=== PATIENT | female | born 1960 | race Caucasian/White ===

== ENCOUNTER 2019-06-07 06:15 | Inpatient (IN) | payer OTHER ==
[~2019-06-07] VITALS: Ht 162.6 cm; Wt 80.7 kg
--- NOTE | ~2019-06-07 | H ---
[facility] [place] [address] HISTORY AND PHYSICAL Name: JERROD REYES Room #: REG SELMA Raphael.#: [id number] Admission: 06/07/19 Attend Phys: Juan Manuel Rodriguez MD, Discharge: Date of : 62 Report #: [id number] THIS REPORT FOR: //name// CC: Juan Manuel Mccormick DO DATE OF SERVICE: 06/07/2019 HISTORY OF PRESENT ILLNESS: The patient is a 59-year-old female patient of Dr. Mccormick, Dr. Wisdom from [place], [place]. She has been having accelerating anginal symptoms with no prior documented coronary artery disease in the last month or so. Underwent nuclear stress testing, which showed a significant large area of inferior wall ischemia. She is admitted today for cardiac catheterization and further delineation of her anatomy. She was recently added statins for markedly elevated total cholesterol was approaching 300. Her other medications are baby aspirin, levothyroxine, metoprolol 50. No PND, orthopnea or peripheral edema. No syncope or presyncope, but a definite decrease in exercise tolerance. PAST MEDICAL HISTORY: Positive for some borderline hypertension, hypercholesterolemia, fibromyalgia, hypothyroidism, internal hemorrhoids, some recent prediabetes. We will need further evaluation and some spinal stenosis with back pain. There is prior thyroidectomy, cholecystectomy and hysterectomy. She had neural stimulator of the spinal cord. FAMILY HISTORY: I have taken care of her father for a number of years, who had premature coronary disease. Mother also she states. SOCIAL HISTORY: She is with 5 children and 5 grandchildren. She was a very remote minimal smoker. No significant alcohol. REVIEW OF SYSTEMS: Essentially negative except for stated above. PHYSICAL EXAMINATION: GENERAL: She is pleasant, alert. VITAL SIGNS: Blood pressure 116/60, pulse 70 and regular. HEENT: Eyes reveal xanthelasmas. Pharynx is clear. NECK: Shows preserved upstrokes without JVD or bruits. LUNGS: Clear. CARDIOVASCULAR: Regular rate and rhythm, S1, S2. No significant murmur or gallop. ABDOMEN: Soft. No HSM or abdominal bruit. EXTREMITIES: Reveal diminished pulses, 1+ femoral pulses. Distal pulses slightly also diminished. NEUROLOGIC: Nonfocal. [facility] [address] [place] [address] HISTORY AND PHYSICAL Name: JERROD REYES Room #: [facility].#: [id number] Admission: 06/07/19 Attend Phys: Juan Manuel Rodriguez MD, Discharge: Date of : 62 Report #: [id number] SKIN: Warm and dry without xanthoma or ulcer. MUSCULOSKELETAL: No gross joint deformity. ASSESSMENT: 1. Suspected coronary artery disease with accelerating anginal pattern. 2. Hypercholesterolemia. 3. Hypertension. 4. Strong family history of premature coronary artery disease. 5. Fibromyalgia. 6. Chronic back pain with spinal cord neurostimulator. RECOMMENDATIONS AND PLAN: We will proceed to the catheterization lab to delineate the anatomy and intervention if indicated. Risks, benefits, alternatives have been discussed. Thank you for assist in the care of this patient. By: [id number] /nt
[2019-06-07 06:52] VITALS: BP 151/82
[2019-06-07 07:08] LABS: HEMATOCRIT 40.7 % (37.0-47.0); HEMOGLOBIN 13.3 gm/dL (12.0-15.0); MCH 27.4 pg (26.0-34.0); MCHC 32.7 g/dL (28.0-37.0); MCV 83.9 fL (80.0-100.0); RBC 4.85 mil/uL (4.20-5.00); RDW 13.9 % (10.5-14.5); WBC 12.1 thou/uL (4.0-11.0)
[2019-06-07 07:19] LABS: CALCIUM 9.1 mg/dL (8.5-10.1); CREATININE 1.2 mg/dL (0.6-1.0)
[2019-06-07] MEDS ORDERED: ASA81BEC PO (07:30)
[2019-06-07] MEDS ORDERED: LEVO-T75 MCG PO (07:30)
[2019-06-07] MEDS ORDERED: METOPROLOL SUCC25 M1 PO (07:31)
[2019-06-07] MEDS ORDERED: CRESTOR40 MG PO (07:33)
[2019-06-07] MEDS ORDERED: NITROSTAT0.4 M1 SL (07:33)
--- NOTE | 2019-06-07 07:52 | EKG ---
[address] [address] ELECTROCARDIOGRAM REPORT Name: JERROD REYES Room #: REG [facility] Gurwinder#: [id number] Admission: 06/07/19 Attend Phys: Juan Manuel Rodriguez MD, Discharge: Date of : 62 Report #: [id number] THIS REPORT FOR: //name// [facility] Test Date: 2019-06-07 Test Time: 07:29:20 Pat Name: JERROD REYES Department: Room: Gender: F Sports Medicine Physician: Eula SPRAGUE : 1960 Requested By: Juan Manuel Rodriguez Order Number: [id number] MD: Siemon Walters Measurements Intervals [place] Rate: 65 P: 12 WI: 122 QRS: 6 QRSD: 89 T: -30 QT: 425 QTc: 442 Interpretive Statements Sinus rhythm Borderline repolarization abnormality No previous ECG available for comparison Electronically Signed On 06-07-2019 7:51:57 CDT by Simeon Walters [email or web address] <ELECTRONICALLY SIGNED> By: Simeon Walters MD 06/07/19 0751 0729 0729 Simeon Walters MD /CHANDLER
--- NOTE | 2019-06-07 12:11 | NUR ---
REPORT TO DANN GRACE.
[2019-06-07 12:50] LABS: CHOLESTEROL 163 mg/dL (<200); HDL CHOLESTEROL 44 mg/dL (>40); LDL CHOLESTEROL 100 mg/dL (<100); TC:HDL 3.7 Ratio (Not establshd); TRIGLYCERIDE 95 mg/dL (<150); VLDL 19 mg/dL (<40)
[2019-06-07 13:30] VITALS: BP 135/75
--- NOTE | 2019-06-07 15:37 | 2DMMODE ---
[facility] [place] [address] 2 D/M-MODE ECHOCARDIOGRAM Name: JERROD REYES Room #: 213-P [facility].#: [id number] Admission: 06/07/19 Attend Phys: Juan Manuel Rodriguez, Discharge: Date of : 62 Report #: [id number] THIS REPORT FOR: //name// APPROVED REPORT Study performed: 06/07/2019 12:33:40 EXAM: Comprehensive 2D, Doppler, and color-flow Echocardiogram Patient Location: Bedside Status: routine BSA: 1.85 HR: 71 bpm BP: 151/82 mmHg Rhythm: NSR Other Information Study Quality: Adequate Indications Pre Op CABG, CAD, HTN, HLD. 2D Dimensions RVDd: 39.81 mm IVSd: 9.64 (7-11mm) LVOT Diam: 18.56 (18-24mm) LVDd: 49.53 mm PWd: 9.33 (7-11mm) Ascending Ao: 31.95 (22-36mm) LVDs: 31.34 (25-40mm) Aortic Root: 29.00 mm IVC: 18.00 mm Volumes Left Atrial Volume (Systole) Single Plane 4CH: 39.15 mL Single Plane 2CH: 36.24 mL LA ESV Index: 24.00 mL/m2 Aortic Valve AoV Peak Ralph.: 1.84 m/s AO Peak Gr.: 13.53 mmHg LVOT Max P.54 mmHg LVOT Max V: 1.06 m/s JOHN Vmax: 1.57 cm2 Mitral Valve E/A Ratio: 1.1 MV Decel. Time: 206.54 ms MV E Max Ralph.: 0.82 m/s [facility] [address] [place] [address] 2 D/M-MODE ECHOCARDIOGRAM Name: JERORD REYES Room #: [facility]#: [id number] Admission: 06/07/19 Attend Phys: Juan Manuel Rodriguez, Discharge: Date of : 62 Report #: [id number] MV A Ralph.: 0.73 m/s MV PHT: 59.90 ms IVRT: 78.43 ms Pulmonary Valve PV Peak Ralph.: 1.02 m/s PV Peak Gr.: 4.20 mmHg Pulmonary Vein P Vein S: 0.66 m/s P Vein A: 0.30 m/s P Vein D: 0.49 m/s P Vein A Dur.: 110.7 msec P Vein S/D Ratio: 1.35 Tricuspid Valve TR Peak Ralph.: 2.68 m/s RAP Estimate: 10.00 mmHg TR Peak Gr.: 28.70 mmHg PA Pressure: 38.00 mmHg Left Ventricle The left ventricle is normal size. There is normal LV segmental wall motion. There is normal left ventricular wall thickness. The left ventricular systolic function is normal. LVEF is 60%. Moderate diastolic dysfunction is present (pseudonormal filling). Right Ventricle The right ventricle is normal size. The right ventricular systolic function is normal. Atria The left atrium size is normal. The right atrium size is normal. Aortic Valve Aortic valve is mildly calcified. No aortic regurgitation is present. There is no aortic valvular stenosis. Mitral Valve The mitral valve is normal in structure. Mild to moderate mitral regurgitation. No evidence of mitral valve stenosis. Tricuspid Valve The tricuspid valve is normal in structure. Trace to mild tricuspid regurgitation. Estimated PAP is 38mmHg. Pulmonic Valve Pulmonic valve is not well visualized. Trace pulmonic regurgitation. [facility] [address] [place] [address] 2 D/M-MODE ECHOCARDIOGRAM Name: JERROD REYES Room #: 213-[facility]..#: [id number] Admission: 06/07/19 Attend Phys: Juan Manuel Rodriguez, Discharge: Date of : 62 Report #: [id number] Great Vessels The aortic root is normal in size. The ascending aorta is normal in size. IVC is normal in size and collapses <50% with inspiration. Pericardium Small pericardial effusion. <Conclusion> The left ventricle is normal size. LVEF is 60%. Moderate diastolic dysfunction is present (pseudonormal filling). The right ventricle is normal size. The left atrium size is normal. Aortic valve is mildly calcified. There is no aortic valvular stenosis. Mild to moderate mitral regurgitation. Trace to mild tricuspid regurgitation. Estimated PAP is 38mmHg. The aortic root is normal in size. Small pericardial effusion. <ELECTRONICALLY SIGNED> By: Juan Manuel Rodriguez MD, FACC 06/07/19 1537 [id number] 153 Juan Manuel Rodriguez MD, FACC /INF
[2019-06-07 16:15] VITALS: BP 129/63
[2019-06-07 17:04] LABS: ABSOLUTE NEUTROPHILS 9.9 thou/uL (1.4-8.2); BASOPHILS 0.6 % (0.0-2.0); HEMATOCRIT 39.5 % (37.0-47.0); HEMOGLOBIN 12.8 gm/dL (12.0-15.0); LYMPHOCYTES 13.6 % (24.0-44.0); MCH 27.5 pg (26.0-34.0); MCHC 32.5 g/dL (28.0-37.0); MCV 84.5 fL (80.0-100.0); MONOCYTES 3.1 % (1.0-8.0); PLATELET COUNT 322 thou/uL (150-400); POLYS 82.7 % (36.0-66.0); RBC 4.67 mil/uL (4.20-5.00); RDW 13.5 % (10.5-14.5)
[2019-06-07 17:08] LABS: URINE BILIRUBIN NEGATIVE (Negative); URINE BLOOD NEGATIVE (Negative); URINE CLARITY CLEAR; URINE COLOR YELLOW; URINE GLUCOSE-RANDOM* NEGATIVE (Negative); URINE KETONES NEGATIVE (Negative); URINE LEUKOCYTES-REFLEX NEGATIVE (Negative); URINE NITRITE-REFLEX NEGATIVE (Negative); URINE PROTEIN (DIPSTICK) NEGATIVE (Negative); URINE UROBILINOGEN 0.2 E.U./dl (0.2-1.0)
[2019-06-07 17:16] LABS: APTT 25.4 Seconds (24.5-32.8)
--- NOTE | 2019-06-07 18:12 | NUR ---
PATIENT ARRIVED FROM CATH AT 1330, SHE WAS OFF BED REST AND POST CARDIAC CATH VS WAS DONE IN PACU. ON ARRIVAL SHE WAS SR AT 76/MIN AND BP 151/82. ASSESMENT DOCUMENTED AND ADMISSIOM COMPLETED. RT [facility] SITE D/C/I. C/O BACK PAIN AND PATIENT HAS IMPLANTED TENS UNIT, VERIFIED WITH LEILA AND PATIENT TURN THE UNIT. AND WILL CONTINUE WITH POC.
[2019-06-07 21:06] VITALS: BP 120/63
[2019-06-07 23:06] LABS: GLYCOHEMOGLOBIN (HGB A1C) 5.4 % (4.8-5.6)
[2019-06-08 03:58] LABS: HEMATOCRIT 36.1 % (37.0-47.0); HEMOGLOBIN 11.9 gm/dL (12.0-15.0); MCH 27.7 pg (26.0-34.0); MCHC 33.1 g/dL (28.0-37.0); MCV 83.6 fL (80.0-100.0); RBC 4.32 mil/uL (4.20-5.00); RDW 13.8 % (10.5-14.5); WBC 10.8 thou/uL (4.0-11.0)
[2019-06-08 04:10] LABS: ALBUMIN 3.1 g/dL (3.4-5.0); CALCIUM 8.6 mg/dL (8.5-10.1); POTASSIUM 4.2 mmol/L (3.5-5.1); TOTAL BILIRUBIN 0.5 mg/dL (<0.1-1.0); TOTAL PROTEIN 7.1 g/dL (6.4-8.2)
[2019-06-08 04:53] VITALS: BP 97/65
--- NOTE | 2019-06-08 04:58 | NUR ---
ASSUMED PT CARE AT 1900. PT IS ALERT AND ORIENTED WITH NO SIGN OF DISTRESS NOTED IN PT. NO COMPLAINTS OF CHEST PAIN. PT IS UP AD PATITO. ASSESSMENT COMPLETED AND DOCUMENTED. SCHEDULED MEDS ADMINISTERED TO PT. PT IS STABLE THROUGHOUT THE NIGHT. DENIES ANY FURTHER NEEDS AT THIS TIME.
[2019-06-08 07:28] VITALS: BP 129/74
--- NOTE | 2019-06-08 08:49 | EKG ---
[address] [address] ELECTROCARDIOGRAM REPORT Name: JERROD REYES Room #: 213-P ADM IN M.R.#: [id number] Admission: 06/07/19 Attend Phys: Juan Manuel Rodriguez MD, Discharge: Date of : 62 Report #: [id number] THIS REPORT FOR: //name// [facility] Test Date: 2019-06-08 Test Time: 07:10:57 Pat Name: JERROD REYES Department: Room: 213 P Gender: F Rattan Worker: STARLA : 1960 Requested By: Juan Manuel Rodriguez Order Number: [id number] MD: Beka Maurice Measurements Intervals [place] Rate: 79 P: 17 SD: 118 QRS: 9 QRSD: 90 T: -64 QT: 419 QTc: 481 Interpretive Statements Sinus rhythm Borderline short SD interval Abnormal R-wave progression, early transition Repol abnrm suggests ischemia, anterolateral Compared to ECG 06/07/2019 07:29:20 No significant change was found Electronically Signed On 06-08-2019 8:49:24 CDT by Beka Maurice [email or web address] <ELECTRONICALLY SIGNED> By: Beka Maurice MD, [facility] 06/08/19 0849 0710 0710 Beka Maurice MD, [facility] /EPI
--- NOTE | 2019-06-08 09:19 | CATHLAB ---
[facility] [address] [place] [address] INVASIVE PROCEDURE REPORT Name: JERROD REYES Room #: 213-P ADM IN M.R.#: [id number] Admission: 06/07/19 Attend Phys: Juan Manuel Rodriguez, Discharge: Date of : 62 Report #: [id number] THIS REPORT FOR: //name// APPROVED REPORT Study performed: 06/07/2019 07:40:30 Patient Details Patient Status: Out-Patient Room #: The patient is a 59 year-old female Event Personnel Juan Manuel Rodriguez Saturator, Patrick Mooney RN, Connie Delacruz RTR Scrub, Tj Flaherty Monitor, Zina Vasquez RTR Monitor Procedures Performed Art Access - R femoral artery* Left Heart Cath w/or w/o Coronaries [id number] [facility] Aortogram Abdominal Peripheral Angio 277493 Renal Bilateral Peripheral Angiography [id number] CVRENALBIL 09772 Initial Mod Sed Same Phys/QHP Gr5y 302726 58345 Mod Sed Same Phys/QHP Ea 269925 Hemostasis w/ Mynx Indication Chest pain Procedure Narrative The Right Groin^ was infiltrated with 1% Lidocaine subcutaneous anesthesia. A PINNACLE 6FR Sheath #[id number] sheath was inserted into the RFA^. Coronary angiography was performed using coronary diagnostic catheters. The right coronary system was accessed and visualized with a JR4 catheter. The left coronary system was accessed and visualized with a JL4 catheter. The left ventricle was accessed and visualized with a pigtail catheter. Left ventriculogram was performed in 30 degree projection. An aortogram of the abdominal aorta was performed. Pre-demployment femoral angiogram was performed . Closure device was deployed with a Fr MYNXGRIP 6/7F #[id number]. Hemostasis was obtained with manual pressure following sheath removal without any complications. The patient tolerated the procedure well and there were no complications associated with the procedure. A hematoma occurred. Intraoperative Conscious Sedation Sedation start time: 8:29 Case end Time: 9:19 [facility] [address] [place] [address] INVASIVE PROCEDURE REPORT Name: JERROD REYES Room #: 213-P [facility] IN M.R.#: [id number] Admission: 06/07/19 Attend Phys: Juan Manuel Rodriguez, Discharge: Date of : 62 Report #: [id number] Fentanyl 50 mcg Versed 2 mg Fluoro Time: 3.11 minutes Dose: DAP 4412.60 cGycm2 539 mGy Contrast Type and Amount: Visipaque 125 ml Hemodynamics The aortic pressure is 128/71 mmHg with a mean of 90 mmHg. The left ventricular pressure is 129/3 mmHg with a mean of mmHg. The left ventricular end diastolic pressure is 15 mmHg. Conclusion #1 normal left ventricular size with subtle inferior basilar wall leg EF 50-55% #2 abdominal aortogram without evidence of aneurysm single bilateral renal arteries widely patent. #3 left main is large and free of disease giving rise to LAD and circumflex #4 the LAD is high-grade complex proximal stenosis of 90-95% involves the diagonal takeoff which is mild to moderate in size. A mid vessel segment also 90% long in the LAD with a preserved distal half of this vessel extends to the apex #5 circumflex OM is nondominant but moderate in size also with extremely complex stenosis 90% proximally giving rise to 2 large OM branches the second of which has a high-grade 95% lesion again well preserved distal targets in the's to OM branches. #6 dominant right coronary artery is subtotally occluded may be WALL WORKER in the mid vessel with preserved PDA and GABRIEL. Appears to be some faint competitive filling from the left system. #7 selective renal angiography bilaterally reveals mild ostial disease. #8 of the CHUNG was injected in anticipation of bypass is widely patent and large conduit Recommendations and plan: Patient with preserved LV function severe three-vessel coronary disease she will we best served with revascularization by bypass. Excellent targets distal to stenoses which are multiple. Transfer to CCU pain-free hemodynamically stable. <ELECTRONICALLY SIGNED> By: Juan Manuel Rodriguez MD, FACC 06/08/19917 7 7 Juan Manuel Rodriguez MD, FACC /INF
[2019-06-08 11:51] VITALS: BP 119/76
--- NOTE | 2019-06-08 14:55 | NUR ---
Consult [id number] is completed. This supplier quality engineer had previusly met this patient on 06/07/19. We had a very meaningful conversation about her mary and family. She said on 06/07/19 that "her motheris her Pilot Instructor" at their mandaeism at [place], [place]. Today, the patient greeted this supplier quality engineer warmly and we discussed her stay. She shared about her upcoming "open heart" surgery on Tuesday. We discussed her family and that both parents have heart issues also. Dr. Medrano has been her father's entry specialist for many years. She said Dr. Merrill asked her to tell "Boots, her father, hello for him". She feels a high level of comfort working with her father's Cardiology group. I told her about my observing the personality of Dr. Avilez, her suregon, as being incredibly gracious and humble. Patient feels at peace with God about her upcoming surgery. I teased her about since her brother "owns a gym he would probably love to "push her hard" in her rehab. She said her father still goes to the [facility], to this day, in [place] for the Rehab gym. She said she will probably just go with her dad when the time comes. We concluded in prayer.
[2019-06-08 15:27] VITALS: BP 112/71
--- NOTE | 2019-06-08 17:03 | NUR ---
met with patient who resides in [facility]. 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 She resides with spouse who is on disability due to dialysis. He dializes 3x a week. Patient also on disability she has a spinal stimulator and arthritis. She has 3 children who are supportive. patient to have a CABG Tuesday She may stay at her parents home upon dc to recover. Patient has health insurance and PCP is Dr Mccormick. caset following for dc planning.
--- NOTE | 2019-06-08 19:58 | NUR ---
RECEIVED PT'S CARE AROUND 0730; PT. ON BED; AOX4; WOOD ROUTER AT THE BED SIDE; DURING ASSESSMENT NO C/O PAIN; ST. ABLE TO AMBULATE WITHOUT ASSISTANCE; EDUCATED ABOUT FALL PREVENTIONS; AM MEDICATION GIVEN; NO C/O PAIN THROUGH THE DAY; NO HEMATOMA OVER R. GROIN AREA; SR ON MONITOR; ASSESSMENT CHARGED; FOLLOWING POC; PASSED ON REPORT;
[2019-06-08 20:32] VITALS: BP 121/76
--- NOTE | 2019-06-09 03:26 | NUR ---
ASSUMED PT CARE AT 1900. VSS. PT A&0X4, ASSESSMENTS AND MEDS GIVEN ARE DOCUMENTED. PT RESTED WELL ALL NIGHT, SHE IS SOMEWHAT ANXIOUS ABOUT SCHEDULED SURGERY. PT IS STABLE, GOOD URINE OUTPUT OVERNIGHT, NO COMPLAINTS OF PAIIN OR DISTRESS WILL CONTINUE OT MONITOR PER POC.
[2019-06-09 03:45] VITALS: BP 132/61
[2019-06-09 04:10] LABS: CREATININE 1.1 mg/dL (0.6-1.0)
[2019-06-09 08:09] VITALS: BP 139/78
[2019-06-09 11:55] VITALS: BP 133/84
[2019-06-09 16:16] VITALS: BP 116/65
--- NOTE | 2019-06-09 17:04 | NUR ---
RECEIVED PT'S CARE AROUND 709; PT. ON BED RESTING WITH EYES CLOSED; DURING ASSESSMENT PT. C/O BACK PAIN; 10/22; ST. ABLE TO TOLERATE PAIN; AM MEDICATION GIVEN; UPDATED CODE STATUS BY CELLAR PUMPER; THROUGH THE DAY NO C/O CP; VS WNL; FERMIN CRAFT ON THE MONITOR; ASSESSMENT CHARGED; FOLLOWING POC; WILL PASS ON REPORT;
[2019-06-09 20:10] VITALS: BP 121/78
[2019-06-10 04:39] VITALS: BP 99/62
--- NOTE | 2019-06-10 05:30 | NUR ---
ASSUMED PT CARE 1900. PT IS ALERT AND ORIENTED. NO SIGN OF DISTRESS NOTED IN PT. PT IS LAYING COMFORTABLY IN BED. DENIES ANY PAIN OF ANY KIND. ASSESSMENT COMPLETED AND DOCUMENTED. VITAL SIGNS STABLE. SCHEDULED MEDS ADMINISTERED TO PT. NO FURTHER NEEDS AT THIS TIME.
[2019-06-10 07:18] VITALS: BP 105/65
[2019-06-10 11:44] VITALS: BP 113/74
[2019-06-10 16:04] VITALS: BP 126/80
--- NOTE | 2019-06-10 18:30 | NUR ---
ASSUMED CARE AT SHIFT CHANGE, ALERT AND ORIENTED X4. ASSESMENT DOCUMENTED. VSS AND AFEBRILE. ANXIUOS ABOUT THE SURGERY TOMORROW. DENIES ANY CP OR DISOCMFORT AT THIS TIME AND WILL CONTINUE WITH POC.
[2019-06-10 20:15] VITALS: BP 115/84
[2019-06-11] VITALS (16 sets, daily range): BP systolic 93–129; BP diastolic 54–79
--- NOTE | 2019-06-11 05:24 | NUR ---
ASSUMED PT CARE AT 1900. PT IS ALERT AND ORIENTED. NO SIGN OF DISTRESS NOTED. FAMILY AT BEDSIDE. PT IS STABLE. ASSESSMENT COMPLETED AND DOCUMENTED. SCHEDULED MEDS ADMINISTERED TO PT. PT IS NPO AFTER MN FOR A CABG. PT TAKES CHLOROHEXIDINE BATH X2. (PM AND AM). PT IS STABLE THROUGHOUT THE NIGHT. PT DENIES ANY PAIN. PT IS PREP FOR CABG. DENIES ANY FURTHER NEEDS AT THIS TIME.
[2019-06-11 12:56] LABS: HEMATOCRIT 24.6 % (37.0-47.0); MCH 27.9 pg (26.0-34.0); MCV 84.6 fL (80.0-100.0); RBC 2.9 mil/uL (4.20-5.00); RDW 13.9 % (10.5-14.5)
[2019-06-11 12:57] LABS: HEMOGLOBIN 8.1 gm/dL (12.0-15.0)
[2019-06-11 13:00] LABS: APTT 32.5 Seconds (24.5-32.8); FIBRINOGEN 180.2 mg/dL (210-360); PROTIME 15.4 Seconds (9.3-11.4)
[2019-06-11 13:01] LABS: INR 1.5
[2019-06-11 13:32] LABS: POC BE 1 mmol/L (-2.0 to +3.0); POC CA IONIZED 3.3 mg/dL (4.5-5.3); POC GLUCOSE 171 mg/dL (70-99); POC HCO3 25.5 mmol/L (22.0-26.0); POC HEMOGLOBIN 7.8 g/dL (12.0-15.0); POC POTASSIUM 5.7 mmol/L (3.5-5.1); POC SODIUM 136 mmol/L (136-145); POC pCO2 40.6 mmHg (35.0-45.0); POC pH 7.405 (7.360-7.450)
[2019-06-11 13:32] LABS: POC BE -3 mmol/L (-2.0 to +3.0); POC CA IONIZED 3.6 mg/dL (4.5-5.3); POC GLUCOSE 107 mg/dL (70-99); POC HEMOGLOBIN 8.2 g/dL (12.0-15.0); POC POTASSIUM 4.7 mmol/L (3.5-5.1); POC SODIUM 135 mmol/L (136-145); POC pCO2 36.5 mmHg (35.0-45.0); POC pH 7.388 (7.360-7.450)
[2019-06-11 13:32] LABS: POC BE -3 mmol/L (-2.0 to +3.0); POC GLUCOSE 126 mg/dL (70-99); POC HCO3 21.8 mmol/L (22.0-26.0); POC HEMOGLOBIN 8.8 g/dL (12.0-15.0); POC POTASSIUM 4.1 mmol/L (3.5-5.1); POC SODIUM 141 mmol/L (136-145); POC pCO2 33.3 mmHg (35.0-45.0); POC pH 7.423 (7.360-7.450)
[2019-06-11 13:32] LABS: POC BE -2 mmol/L (-2.0 to +3.0); POC CA IONIZED 4.4 mg/dL (4.5-5.3); POC GLUCOSE 123 mg/dL (70-99); POC HCO3 22.5 mmol/L (22.0-26.0); POC HEMOGLOBIN 10.9 g/dL (12.0-15.0); POC SODIUM 136 mmol/L (136-145); POC pCO2 35.1 mmHg (35.0-45.0); POC pH 7.414 (7.360-7.450)
[2019-06-11 13:32] LABS: POC BE -1 mmol/L (-2.0 to +3.0); POC CA IONIZED 4.3 mg/dL (4.5-5.3); POC GLUCOSE 158 mg/dL (70-99); POC HEMOGLOBIN 8.2 g/dL (12.0-15.0); POC POTASSIUM 5.1 mmol/L (3.5-5.1); POC SODIUM 138 mmol/L (136-145); POC pCO2 37.3 mmHg (35.0-45.0); POC pH 7.417 (7.360-7.450)
[2019-06-11 13:32] LABS: POC BE 3 mmol/L (-2.0 to +3.0); POC CA IONIZED 3.4 mg/dL (4.5-5.3); POC GLUCOSE 113 mg/dL (70-99); POC HCO3 27.3 mmol/L (22.0-26.0); POC HEMOGLOBIN 6.8 g/dL (12.0-15.0); POC POTASSIUM 5.1 mmol/L (3.5-5.1); POC SODIUM 137 mmol/L (136-145)
[2019-06-11 13:32] LABS: POC BE 2 mmol/L (-2.0 to +3.0); POC CA IONIZED 3.5 mg/dL (4.5-5.3); POC GLUCOSE 171 mg/dL (70-99); POC HCO3 27.2 mmol/L (22.0-26.0); POC HEMOGLOBIN 7.8 g/dL (12.0-15.0); POC POTASSIUM 5.9 mmol/L (3.5-5.1); POC SODIUM 136 mmol/L (136-145); POC pCO2 43.5 mmHg (35.0-45.0); POC pH 7.404 (7.360-7.450)
[2019-06-11 13:32] LABS: POC BE 3 mmol/L (-2.0 to +3.0); POC CA IONIZED 3.4 mg/dL (4.5-5.3); POC GLUCOSE 140 mg/dL (70-99); POC HEMOGLOBIN 6.8 g/dL (12.0-15.0); POC POTASSIUM 5.8 mmol/L (3.5-5.1); POC SODIUM 136 mmol/L (136-145); POC pCO2 40.3 mmHg (35.0-45.0); POC pH 7.434 (7.360-7.450)
[2019-06-11 13:32] LABS: POC BE 1 mmol/L (-2.0 to +3.0); POC CA IONIZED 4.6 mg/dL (4.5-5.3); POC GLUCOSE 114 mg/dL (70-99); POC HCO3 24.1 mmol/L (22.0-26.0); POC HEMOGLOBIN 11.9 g/dL (12.0-15.0); POC POTASSIUM 4.2 mmol/L (3.5-5.1); POC SODIUM 138 mmol/L (136-145); POC pCO2 31.5 mmHg (35.0-45.0); POC pH 7.492 (7.360-7.450)
[2019-06-11 14:13] LABS: MCH 27.9 pg (26.0-34.0); MCHC 33.1 g/dL (28.0-37.0); MCV 84.5 fL (80.0-100.0); RBC 4.15 mil/uL (4.20-5.00); RDW 13.8 % (10.5-14.5); WBC 31.9 thou/uL (4.0-11.0)
[2019-06-11 14:15] LABS: HEMOGLOBIN 11.6 gm/dL (12.0-15.0)
[2019-06-11 14:22] LABS: CALCIUM 7.5 mg/dL (8.5-10.1); CREATININE 0.9 mg/dL (0.6-1.0); MAGNESIUM 2.5 mg/dL (1.8-2.4); POTASSIUM 4.1 mmol/L (3.5-5.1)
[2019-06-11 14:22] LABS: BE(vivo) -4.5 mmol/L (-2 to +3); HCO3 20.4 mmol/L (22.0-26.0); PCO2 37.2 mmHg (35.0-45.0); PO2 96.7 mmHg (80.0-100.0); pH 7.358 (7.360-7.450); sO2 97.2 % (92.0-98.0)
[2019-06-11 14:25] LABS: APTT 33.2 Seconds (24.5-32.8); INR 1.3; PROTIME 13.2 Seconds (9.3-11.4)
--- NOTE | 2019-06-11 19:17 | NUR ---
PT ARRIVED ON THE UNIT @ APPROXIMATELY 1450 WITH THE ASSIST OF NURSING STAFF, THE ANESTHESIOLOGIST, DR PAUL AND TAMMY BECKER. NO COMPLICATIONS NOTED DURING TRANPORT. FAMILY UPDATED ABOUT STATUS. UNABLE TO REACH DR PAUL THROUGH CELL-PHONE NUMBER PROVIDED ON THE UNIT AND SO TAMMY BECKER WAS CALLED AND GIVEN THE INITIAL ABG AND RN WAS TOLD THAT HE WOULD REPORT PERSONALLY TO DR PAUL. REPORT GIVEN TO BUSHRA QUIGLEY. CONTINUE TO FOLLOW ORDERS. PLAN OF CARE- CONT TO MONITOR.
[2019-06-11 19:58] LABS: BE(vivo) -5.7 mmol/L (-2 to +3); HCO3 19.5 mmol/L (22.0-26.0); PCO2 37.3 mmHg (35.0-45.0); PO2 146.2 mmHg (80.0-100.0); pH 7.336 (7.360-7.450); sO2 98.8 % (92.0-98.0)
[2019-06-11 21:44] LABS: BE(vivo) -6.4 mmol/L (-2 to +3); HCO3 18.3 mmol/L (22.0-26.0); PCO2 33.7 mmHg (35.0-45.0); PO2 115.6 mmHg (80.0-100.0); pH 7.352 (7.360-7.450); sO2 98.1 % (92.0-98.0)
[2019-06-12] VITALS (21 sets, daily range): BP systolic 99–139; BP diastolic 54–75
--- NOTE | 2019-06-12 05:57 | NUR ---
PT CONFUSED, VISUALLY HALLUCINATING, OUTBURTS CRYING EPISODES x3 AND RESTLESS. PT PERSISTENTLY TACHYCARDIC AND HYPENTENSIVE THROUGHOUT THE NIGHT. PT TREATED WITH PRN MEDS. 500 ML NS BOLUS GIVEN. LOPRESSOR 5 MG X2 GIVEN. NO CHANGE IN SITUATION. CARDIOLOGY CONSULTED. PT WAS AWAKE ALL NIGHT.
[2019-06-12 06:15] LABS: HEMATOCRIT 30.7 % (37.0-47.0); HEMOGLOBIN 10.4 gm/dL (12.0-15.0); MCH 28.3 pg (26.0-34.0); MCHC 33.8 g/dL (28.0-37.0); MCV 83.8 fL (80.0-100.0); RBC 3.67 mil/uL (4.20-5.00); RDW 14.3 % (10.5-14.5)
[2019-06-12 06:17] LABS: WBC 16.9 thou/uL (4.0-11.0)
[2019-06-12 06:32] LABS: CALCIUM 7.8 mg/dL (8.5-10.1); MAGNESIUM 2.2 mg/dL (1.8-2.4)
--- NOTE | 2019-06-12 08:13 | NUR ---
See [facility] for assessment, insulin flowsheet, and critical care flowsheet for events. pt extubated at 2024. Cont to enc pt to cough/deep breath. IS -fair effort. Hemodynamics wnl. On Amiodorone with SR -hr 90's. Good urine output. UP to chair. Progressing towards goals. Cont plan of care
--- NOTE | 2019-06-12 08:37 | EKG ---
[address] [address] [facility] [address] ELECTROCARDIOGRAM REPORT Name: JERROD REYES Room #: 236-P ADM IN M.R.#: [id number] Admission: 06/07/19 Attend Phys: Juan Manuel Rodriguez MD, Discharge: Date of : 62 Report #: [id number] THIS REPORT FOR: //name// [facility] Test Date: 2019-06-11 Test Time: 15:57:08 Pat Name: JERROD REYES Department: Room: [facility] Gender: F Customs Patrol Officer: Marry PENA : 1960 Requested By: Cornelius Cha Order Number: [id number] MD: Beka Maurice Measurements Intervals [place] Rate: 94 P: 20 CT: 137 QRS: 21 QRSD: 98 T: 269 QT: 411 QTc: 515 Interpretive Statements Sinus rhythm Nonspecific ST and T wave abnormality Prolonged QT interval Compared to ECG 06/08/2019 07:10:57 No significant change was found Electronically Signed On 06-12-2019 8:37:13 CDT by Beka Maurice [email or web address] <ELECTRONICALLY SIGNED> By: Beka Maurice MD, [facility] 06/12/19 0837 1557 1557 Beka Maurice MD, [facility] /EPI
--- NOTE | 2019-06-12 08:39 | EKG ---
[place] [place] [address] [facility] [place] [address] ELECTROCARDIOGRAM REPORT Name: JERROD REYES Room #: 236-P ADM IN M.R.#: [id number] Admission: 06/07/19 Attend Phys: Juan Manuel Rodriguez MD, Discharge: Date of : 62 Report #: [id number] THIS REPORT FOR: //name// [facility] Test Date: 2019-06-12 Test Time: 07:17:08 Pat Name: JERROD REYES Department: Room: 236 P Gender: F Patient Coordinator: STARLA : 1960 Requested By: Cornelius Cha Order Number: [id number] MD: Beka Maurice Measurements Intervals [place] Rate: 99 P: 5 [place]: 149 QRS: 5 QRSD: 81 T: 196 QT: 382 QTc: 491 Interpretive Statements Sinus rhythm RSR' in V1 or V2, right VCD Abnrm T, consider ischemia, anterolateral lds Compared to ECG 06/08/2019 07:10:57 No significant change was found Electronically Signed On 06-12-2019 8:39:07 CDT by Beka Maurice [email or web address] <ELECTRONICALLY SIGNED> By: Beka Maurice MD, FACC 06/12/19 0839 6 6 Beka Maurice MD, [facility] /EPI
--- NOTE | 2019-06-12 15:53 | NUR ---
POD #1 CABG TODAY. UP IN GEMMA. THERAPY EVALS PENDING AND CM FOLLOWING FOR COORDINATION OF ANY DC NEEDS.
--- NOTE | 2019-06-12 19:17 | NUR ---
PT POST OP DAY 1 CABG X4. UP TO CHAIR AT 0700. DR. PAUL AND MAGALY BECKER AT BEDSIDE. ORDERS TO D/C CLARKE TSANG MEDS AND TO CAP PACER WIRES. PATIENT VITALS STABLE THROUGH OUT THE DAY. REMAINS ON 2L NC. UP TO CHAIR FOR MEALS. POOR APPETITE. COMPLAINED OF NAUSEA X2 - PRN ZOFRAN GIVEN. PT/OT WORKED WITH PATIENT. SCHEDULED IV TYLENOL FOR PAIN, ORN OXY FOR BREAK THROUGH PAIN. PATIENT PROGRESSING TOWARDS GOALS.
[2019-06-13] VITALS (20 sets, daily range): BP systolic 93–131; BP diastolic 49–102
[2019-06-13 00:06] LABS: GLYCOHEMOGLOBIN (HGB A1C) 5.3 % (4.8-5.6)
[2019-06-13 06:33] LABS: HEMATOCRIT 28.8 % (37.0-47.0); HEMOGLOBIN 9.5 gm/dL (12.0-15.0); MCHC 32.9 g/dL (28.0-37.0); MCV 85.2 fL (80.0-100.0); RBC 3.38 mil/uL (4.20-5.00); RDW 14.3 % (10.5-14.5); WBC 17.9 thou/uL (4.0-11.0)
[2019-06-13 06:47] LABS: CREATININE 1.1 mg/dL (0.6-1.0); POTASSIUM 4.1 mmol/L (3.5-5.1)
--- NOTE | 2019-06-13 07:00 | NUR ---
Pt slept off and on through the night with stable VS. PRN oxycodones given for c/o generalized discomfort with desired effect achieved. SpO2 remain adequate on current FiO2 and chest tube drainage minimal. PRN zofran given for c/o nausea intermittently with desired effect achieved. Urine output adequate for shift. Am lab results noted, continue with POC.
--- NOTE | 2019-06-13 16:58 | NUR ---
FAMILY AT BEDSIDE FOR SUPPORT. EATING A HEART HEALTHY DIET UP TO CHAIR TODAY. WEARING SCDS IN BED. DENIES ANY COMPLAINT OF PAIN AT THIS TIME. STERNUM DRESSING DRY AND INTACT.UP TO THE CHAIR TODAY FOR A LITTLE BIT. PHYAICAL THERAPY WORKING WITH PT. NO COMPLAINTS OR CONCERNS NOTED AT THIS TIME. WILL CONTINUE TO ASSESS AND MONITOR PER SILVIA.
--- NOTE | 2019-06-13 21:10 | NUR ---
DR PAUL HERE. RIGHT JUJULAR INTRODUCER LINE DCD PER ORDER
[2019-06-14] VITALS (29 sets, daily range): BP systolic 89–129; BP diastolic 42–79
[2019-06-14 05:52] LABS: HEMATOCRIT 28.1 % (37.0-47.0); HEMOGLOBIN 9.3 gm/dL (12.0-15.0); MCH 28.4 pg (26.0-34.0); MCV 86.2 fL (80.0-100.0); RBC 3.27 mil/uL (4.20-5.00); RDW 14.1 % (10.5-14.5); WBC 14.2 thou/uL (4.0-11.0)
[2019-06-14 05:58] LABS: CALCIUM 8.2 mg/dL (8.5-10.1); CREATININE 1.1 mg/dL (0.6-1.0); POTASSIUM 4.3 mmol/L (3.5-5.1)
--- NOTE | 2019-06-14 06:00 | NUR ---
PT SLEPT AT INTERVALS TONIGHT. UP TO TOILET VOIDED 800 CC OLGA URINE CHEST AND LEG DRESSINGS INTACT. SINUS RHYTHM. BATHED PULSES INTACT. WILL TX TO CCU TODAY.
--- NOTE | 2019-06-14 09:34 | NUR ---
Nutrition: pt seen due to LOS. S/P CABG x 4, POD 3. Remains in ICU. Tolerating meals, 50-100% intake. Avoids certain foods due to her fibromyalgia dx. RD assisted with food preferences and appropriate substitutions. Pt reports trying to eat her protein foods first on trays. Not interested in supplements. Stable weights. Main issue at present is pain. RD left materials on heart healthy diet for pt to review when she feels better. Low nutrition risk.
--- NOTE | 2019-06-14 18:05 | NUR ---
PATIENT TRANSFERED TO 211 WITH BELONGINGS AND ALL PHONE CHARGERS.
--- NOTE | 2019-06-14 18:37 | NUR ---
PT ARRIVED TO UNIT AT APPROX 1800 BY ICU STAFF WITH ALL BELONGINGS. PT ALERT AND ORIENTED, VSS, UP SBA TOLERATING WELL. O2 SATS WNL ON ROOM AIR, NO C/O SOB. C/O BACK PAIN, WILL TREAT WITH TYLNEOL PT DOES NOT WANT NARCS. FELY DRESSING CDI, HARVEST DRESSINGS LEFT LEG CDI. TELE PUT ON, STRIP PRINTED AND DOCUMENTED. NSR ON MONITOR. DENYING NEEDS AT THIS TIME. WILL CONT TO MONITOR.
[2019-06-15 04:47] VITALS: BP 118/60
--- NOTE | 2019-06-15 05:31 | NUR ---
PATIENT SLEPT WELL THROUGH THE NIGHT. PATIENT REQUESTED NO NARCOTICS DUE TO NAUSEA. CALLED DR. PAUL AND GOT ORDER FOR TYLENOL. THIS HELD HER PAIN. PATIENT VOIDING ADEQUATE AMOUNTS. HEART RATE AND RHYTHM STABLE. BLOOD PRESSURE STABLE. AFEBRILE. INCISIONS STABLE. NO AM LABS ORDERED. PATIENT IS PROGRESSING TOWARDS GOALS AND ANTICIPATES GOING HOME TODAY.
[2019-06-15 08:00] VITALS: BP 115/62
[2019-06-15] MEDS ORDERED: FERRIC X-150150 MG PO ×2 (08:46→09:56)
[2019-06-15 12:00] VITALS: BP 105/79
[2019-06-15 12:08] VITALS: BP 115/62
--- NOTE | 2019-06-15 13:38 | NUR ---
ASSESSMENT CHARTED. PT ALERT AND ORIENTED. VSS. SURGICAL FELY DRESSING INTACT. SEEN BY DR. PAUL. ORDERS GIVEN TO DISCHARGE PT TO HOME. DISCHARGE INSTRUCTIONS GIVEN TO PT. PT VERBERLISED UNDERSTANDING. PT LEFT THE FACILITY ACCOMPANIED BY THE DAUGHTER.
--- NOTE | 2019-06-15 15:48 | NUR ---
Pt dc'd to home with family today and outpt f/u. No cm interventions indicated.
--- NOTE | 2019-06-17 11:13 | EKG ---
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: Eriberto LUNA : 1960 Requested By: Cornelius Cha Order Number: [id number] MD: Simeon Walters Measurements Intervals [place] Rate: 83 P: 10 OK: 130 QRS: 17 QRSD: 100 T: 31 QT: 461 QTc: 542 Interpretive Statements Sinus rhythm Abnormal R-wave progression, early transition Nonspecific T abnormalities, anterior leads Prolonged QT interval Baseline wander in lead(s) V5 Electronically Signed On 06-17-2019 11:13:50 OPEN SHANK COVERER by Simeon Walters [email or web address] <ELECTRONICALLY SIGNED> By: Simeon Walters MD 06/17/19 1113 Simeon Walters MD /EPI
--- NOTE | 2019-06-19 13:07 | HC ---
[facility] [place] [address] CONSULTATION Name: JERROD REYES Room #: 211-P [facility] IN M.R.#: [id number] Admission: 06/07/19 Attend Phys: Juan Manuel Rordiguez MD, Discharge: 06/15/19 Date of : 62 Report #: [id number] THIS REPORT FOR: //name// CC: Juan Manuel Mccormick DATE OF SERVICE: 06/07/2019 We were asked to see the patient by Dr. Rodriguez. HISTORY OF PRESENT ILLNESS: The patient is a 59-year-old admitted with coronary artery disease. The patient states that she had exertional chest pain that was new approximately 2 weeks ago. This was reproducible and led her to see Dr. Wisdom in [place]. The patient had EKG changes with a nuclear stress test with a moderate size defect encompassing the entire inferior wall that extended to the apex that was reversible. The patient denies previous cardiac problems, but she admits to having a family history of coronary artery disease in father and mother. PAST MEDICAL HISTORY: The patient denies problems with hypertension and diabetes mellitus. MEDICATIONS: The patient was recently placed on Crestor and metoprolol. ALLERGIES: The patient states she gets nauseated with OPIOIDS, but denies other medication allergy. PAST SURGICAL HISTORY: Previous surgery includes cholecystectomy, D and C and hysterectomy. The patient also admits to spondylolisthesis and is disabled from spinal stenosis medication also includes thyroid replacement as the patient states she had a goiter removed in the past. REVIEW OF SYSTEMS: Generally negative. CONSTITUTIONAL: No fever, chills, weight change. EYES: Wears glasses. No recent vision change. HEENT: No headache. No nasal drainage. PULMONARY: Denies shortness of breath. CARDIAC: As mentioned, chest tightness with exercise. No palpitations. GASTROINTESTINAL: No nausea or vomiting. GENITOURINARY: No urgency, frequency or blood. MUSCULOSKELETAL: As mentioned, spinal stenosis with disability related to back pain. NEUROLOGIC: No specific new motor or sensory dysfunction. [facility] [address] [place] [address] CONSULTATION Name: JERROD REYES Room #: Formerly named [facility] IN M.R.#: [id number] Admission: 06/07/19 Attend Phys: Juan Manuel Rodriguez MD, Discharge: 06/15/19 Date of : 62 Report #: [id number] SKIN: No rash or infection. ENDOCRINE: No new goiter, no tremor. PHYSICAL EXAMINATION: GENERAL: The patient is lying in bed after her cardiac catheterization, seems to be comfortable. Normocephalic. Pupils are round and equal. No arcus. No icterus. NECK: No mass, no bruit. CHEST: Clear to auscultation. HEART: Rhythm regular. ABDOMEN: Soft, no mass. EXTREMITIES: No obvious saphenous vein problems, 1+ popliteal pulses. I do not feel distal pulses. SKIN: No rash or infection. NEUROLOGIC: No gross motor or sensory dysfunction. MUSCULOSKELETAL: No bone or joint asymmetry or deformity. ASSESSMENT: Cardiac catheterization today showed severe 3-vessel coronary artery disease with high-grade lesions in left anterior descending, circumflex and left ventricular function mildly reduced with inferior hypokinesis. I have recommended coronary artery bypass surgery. Risks and details of this were discussed. Risks include but are not limited to bleeding, infection, anesthesia risks, heart and lung problems, stroke and . Options and alternatives were reviewed. The patient understands all of this and wishes to proceed. We will try to arrange surgery for 06/11/2019. Thank you for the consult. <ELECTRONICALLY SIGNED> By: Hernan Avilez MD 06/19/19 1307 1022 31 Hernan Avilez MD /nt
--- NOTE | 2019-06-19 13:07 | O ---
[facility] [place] [address] OPERATIVE REPORT Name: JERROD REYES Room #: 211-P [facility] IN M.R.#: [id number] Admission: 06/07/19 Attend Phys: Juan Manuel Rodriguez MD, Discharge: 06/15/19 Date of : 62 Report #: [id number] THIS REPORT FOR: //name// CC: Juan Manuel Mccormick DATE OF SERVICE: 06/11/2019 PREOPERATIVE DIAGNOSIS: Coronary artery disease. POSTOPERATIVE DIAGNOSIS: Coronary artery disease. OPERATION: Coronary artery bypass x 4 including left internal mammary artery to left anterior descending artery, saphenous vein to marginal 1 and marginal 2 and saphenous vein to posterior descending branch of right coronary. SURGEON: Hernan Avilez MD HOB GRINDER: Laquita BECKER and EUGENIO Shaw. ANESTHESIA: General. INDICATIONS: The patient is a 59-year-old with coronary artery disease seen for Dr. Rodriguez. The patient presents with angina and believed to be related to the right coronary. Left ventricular function is mildly reduced. TECHNIQUE: After general anesthesia was established, left greater saphenous vein was harvested using an endoscopic approach and prepared for the use as a conduit. Exposure was obtained through median sternotomy. Left internal mammary artery was harvested from chest wall. Pericardial well was made. Cannulation sutures were placed. Heparin was given. Aorta was cannulated. Right atrium was cannulated. Cardioplegia needle was positioned in the aortic root. Retrograde cardioplegic catheter was placed in coronary sinus. Cardiopulmonary bypass was established. The aorta was cross clamped. Antegrade and retrograde cardioplegia were given. Ice was poured in the pericardial well. The heart was stopped. During electromechanical arrest, the distal anastomoses were performed and end-to-side anastomosis was made between vein and the posterior descending artery. This was a 1.2 mm vessel. Cold cardioplegia was given. Separate segment of vein was sewn in end-to-side fashion to the second marginal artery. This was a 1.5 mm vessel. Cold cardioplegia was given. The same segment of vein was sewn in end-to-side fashion to the first marginal. This was a 1.5 mm vessel. Cold cardioplegia was given. Left internal mammary artery was sewn in [facility] [address] [place] [address] OPERATIVE REPORT Name: JERROD REYES Room #: 211-P [facility] IN M.R.#: [id number] Admission: 06/07/19 Attend Phys: Juan Manuel Rodriguez MD, Discharge: 06/15/19 Date of : 62 Report #: [id number] end-to-side fashion to left anterior descending artery. This was a 1.5 mm vessel. The anastomosis was checked with the temperature technique. Cold cardioplegia was given. Two proximal anastomoses were performed. When these were complete, warm retrograde cardioplegia was given followed by warm continuous blood to the coronary sinus. When this infusion was complete, the crossclamp was removed, de-airing maneuvers were performed. The anastomoses were inspected and found to be satisfactory. As the patient warmed, nice cardiac activity resumed, chest tubes and pacing wires were placed, a marker was placed around the proximal anastomoses. When the patient was warmed, she was weaned from cardiopulmonary bypass. Venous cannula was removed. Protamine was given, the aortic cannula was removed. Flows were measured in the bypass grafts. When hemostasis was satisfactory, chest was irrigated with antibiotic solution and closed in the usual fashion. The patient was taken to the Intensive Care Unit in good condition having tolerated the procedure well. All counts reported as correct. <ELECTRONICALLY SIGNED> By: Hernan Avilez MD 06/19/19 1307 1549 [id number] Hernan Avilez MD /nt
== END 2019-06-15 13:43 | disposition home or self-care (01) | DRG 233 ==
LOC: CATH 06:15 → 2N 13:45 → ICU 13:46 → CATH 13:46 → 2N 13:46 → TBA 06-11 10:21 → ICU 06-11 14:00 → 2N 06-14 17:59 → ENTRNSPT 06-15 13:09 → EDTRNSPTSTS 06-15 13:18 → 2N 06-15 13:43
PROVIDERS: Nurse Practitioner Adult Health; Physician Assistant; Surgery Vascular Surgery; ADMIT Internal Medicine Cardiovascular Disease
PROC: B41FYZZ Fluoroscopy of Right Lower Extremity Arteries using Other Contrast (ICD-10-PCS; principal; 2019-06-07)
PROC: B211YZZ Fluoroscopy of Multiple Coronary Arteries using Other Contrast (ICD-10-PCS; principal; 2019-06-07)
PROC: B215YZZ Fluoroscopy of Left Heart using Other Contrast (ICD-10-PCS; principal; 2019-06-07)
PROC: 4A023N7 Measurement of Cardiac Sampling and Pressure, Left Heart, Percutaneous Approach (ICD-10-PCS; principal; 2019-06-07)
PROC: B410YZZ Fluoroscopy of Abdominal Aorta using Other Contrast (ICD-10-PCS; principal; 2019-06-07)
PROC: 02100Z9 Bypass Coronary Artery, One Artery from Left Internal Mammary, Open Approach (ICD-10-PCS; 2019-06-11)
PROC: 021209W Bypass Coronary Artery, Three Arteries from Aorta with Autologous Venous Tissue, Open Approach (ICD-10-PCS; 2019-06-11)
PROC: 30233N1 Transfusion of Nonautologous Red Blood Cells into Peripheral Vein, Percutaneous Approach (ICD-10-PCS; 2019-06-11)
PROC: 5A1221Z Performance of Cardiac Output, Continuous (ICD-10-PCS; 2019-06-11)
PROC: 06BQ4ZZ Excision of Left Saphenous Vein, Percutaneous Endoscopic Approach (ICD-10-PCS; 2019-06-11)
PROC: 05HY33Z Insertion of Infusion Device into Upper Vein, Percutaneous Approach (ICD-10-PCS; 2019-06-12)
DX: I25.10 Atherosclerotic heart disease of native coronary artery without angina pectoris (principal); I50.33 Acute on chronic diastolic (congestive) heart failure; D62 Acute posthemorrhagic anemia; E78.00 Pure hypercholesterolemia, unspecified; E89.0 Postprocedural hypothyroidism; I10 Essential (primary) hypertension; M79.7 Fibromyalgia; G89.29 Other chronic pain; M54.9 Dorsalgia, unspecified; I65.23 Occlusion and stenosis of bilateral carotid arteries; M48.00 Spinal stenosis, site unspecified; Z88.6 Allergy status to analgesic agent; Z90.49 Acquired absence of other specified parts of digestive tract; Z90.710 Acquired absence of both cervix and uterus; Z82.49 Family history of ischemic heart disease and other diseases of the circulatory system; Z79.82 Long term (current) use of aspirin; Z79.899 Other long term (current) drug therapy
CPT/HCPCS: 10078; 10081; 47000; 47001; 47002; 47297; 48888; 50010; 50249; 50409; 50456; 50498; 50668; 51301; 52131; 52259; 52314; 53327; 53358; 54118; 55415; 56455; 56524; 56525; 56526; 56527; 56528; 56531; 56534; 56668; 56760; 56898; 57093; 57116; 57167; 62110; 62950; 65003; 65020; 65047; 65090; 65120; 65135; 83006

== ENCOUNTER → 2019-12-19 | Outpatient (CLI) | payer OTHER ==
[~2019-12-19] MED LIST: ASA81BEC PO; CRESTOR40 MG PO; FERRIC X-150150 MG PO; LEVO-T75 MCG PO; METOPROLOL SUCC25 M1 PO; NITROSTAT0.4 M1 SL
== END ==
LOC: SJCVC 10:58
DX: R94.31 Abnormal electrocardiogram [ECG] [EKG] (principal); I25.10 Atherosclerotic heart disease of native coronary artery without angina pectoris; I10 Essential (primary) hypertension; E78.5 Hyperlipidemia, unspecified; M48.00 Spinal stenosis, site unspecified; I65.23 Occlusion and stenosis of bilateral carotid arteries; Z95.1 Presence of aortocoronary bypass graft

== ENCOUNTER → 2020-03-20 | Outpatient (CLI) | payer OTHER | LOC: SJCVCIMAG 07:08 | PROVIDERS: ATTEND Internal Medicine Cardiovascular Disease | DX: I25.10 Atherosclerotic heart disease of native coronary artery without angina pectoris (principal); I10 Essential (primary) hypertension; E78.5 Hyperlipidemia, unspecified; Z95.1 Presence of aortocoronary bypass graft ==